=== PATIENT | female | born 1995 | race Caucasian/White ===

== ENCOUNTER 2017-11-01 19:19 | Emergency (ER) | payer OTHER, BC ==
[2017-11-01 19:28] LABS: BASOPHIL (%) 0.3 % (0-1); EOSINOPHIL (%) 0.2 % (0-5); HEMATOCRIT 37.3 % (36.0-46.0); HEMOGLOBIN 12.9 G/DL (11.9-15.5); IMMATURE GRANULOCYTE (%) 0.8 % (0.0-0.7); LYMPHOCYTE (%) 26.1 % (15-42); LYMPHOCYTE COUNT 2.8 K/uL (1.0-2.8); MCH 30.6 PG (29.0-34.0); MCHC 34.6 G/DL (30.0-36.0); MCV 88.4 FL (83-99); MONOCYTE (%) 4.8 % (3-12); MONOCYTE COUNT 0.5 K/uL (0-0.8); NEUTROPHIL (%) 67.8 % (45-76); NEUTROPHIL COUNT 7.2 K/uL (1.8-6.4); PLATELET COUNT 244 K/uL (156-360); RBC DIS.WIDTH-CV 12.1 % (11.8-14.6); RBC DIS.WIDTH-SD 38.7 % (39-53); RED BLOOD COUNT 4.22 M/uL (3.80-5.20); WHITE BLOOD COUNT 10.7 K/uL (4.1-10.2)
[2017-11-01 19:37] LABS: AMYLASE 86 IU/L (1-118); CHLORIDE 106 mEq/L (99-109); POTASSIUM 3.2 mEq/L (3.7-5.4); SODIUM 138 mEq/L (136-147)
[2017-11-01 19:39] LABS: GLUCOSE 111 mg/dL (70-99)
[2017-11-01 19:42] LABS: CREATININE 0.8 mg/dL (0.6-1.3); SERUM ETHYL ALCOHOL < 10 mg/dL
[2017-11-01 19:43] LABS: UREA NITROGEN (BUN) 11 mg/dL (9-23)
[2017-11-01 19:49] LABS: GFR ESTIMATE (CALCULATED) > 59 mL/min/
[2017-11-01 19:51] LABS: QUANTITATIVE HCG < 4.0 MIU/ML
[2017-11-01 20:23] LABS: LIPASE 49 U/L (1.0-51.0)
[2017-11-01 21:44] LABS: APPEARANCE CLEAR ((CLEAR)); BILIRUBIN NEGATIVE; BLOOD NEGATIVE; COLOR YELLOW ((YELLOW)); GLUCOSE (STRIP) NEGATIVE; KETONES 5; LEUKOCYTES NEGATIVE; NITRITE NEGATIVE; PROTEIN (STRIP) 30; UCUL ADDED? NO; UROBILINOGEN 0.2 MG/DL (0.2-1.0)
[2017-11-01 21:47] LABS: SPECIFIC GRAVITY > 1.060 (1.000-1.030)
[2017-11-01 22:19] LABS: AMPHETAMINE NEGATIVE (500 ng/mL); BARBITURATES NEGATIVE (200 ng/mL); BENZODIAZEPINES NEGATIVE (150 ng/mL); BUPRENORPHINE NEGATIVE (10 ng/mL); COCAINE NEGATIVE (150 ng/mL); METHADONE NEGATIVE (200 ng/mL); METHAMPHETAMINE NEGATIVE (500 ng/mL); OPIATES (MORPHINE) NEGATIVE (100 ng/mL); OXYCODONE NEGATIVE (100 ng/mL); PHENCYCLIDINE NEGATIVE (25 ng/mL); PROPOXYPHENE NEGATIVE (300 ng/mL); THC CANNABINOIDS NEGATIVE (50 ng/mL); TRICYCLIC ANTIDEPRESSANTS NEGATIVE (300 ng/mL)
[2017-11-02] MEDS ORDERED: MOTRIN600 MG PO (01:26)
[2017-11-02] MEDS ORDERED: NORCO 5/3251 TABLET PO (01:26)
== END 2017-11-02 02:07 | disposition home or self-care (01) ==
LOC: TRA 19:19
PROVIDERS: Emergency Medicine Emergency Medical Services
DX: S80.811A Abrasion, right lower leg, initial encounter (principal); S90.811A Abrasion, right foot, initial encounter; S50.312A Abrasion of left elbow, initial encounter; S00.91XA Abrasion of unspecified part of head, initial encounter; T80.89XA Other complications following infusion, transfusion and therapeutic injection, initial encounter; V48.0XXA Car driver injured in noncollision transport accident in nontraffic accident, initial encounter; Y92.410 Unspecified street and highway as the place of occurrence of the external cause
CPT/HCPCS: 70450; 71260; 72125; 73070; 74177; 80048; 81003; 82150; 83690; 84702; 85025; 86850; 86900; 86901; 99281; 99285; G0480; J3010